=== PATIENT | female | born 1965 | race Caucasian/White ===

== ENCOUNTER → 2017-08-26 | Day surgery (SDC) | payer OTHER ==
[~2017-08-26] MED LIST: ACETAMINOPHEN/HYDROcodone 325 MG/7.5 MG TAB ONE; KETOROLAC TROMETHAMINE 30 MG/ML (IVP) VIAL IV PUSH ONE; LACTATED RINGER'S 1000 ML INJ 1,000 ML ONE; MIDAZOLAM HCL 2 MG/2 ML VIAL ONE; ONDANSETRON HCL 4 MG/2 ML VIAL IV PUSH ONE; PROPOFOL 200 MG/20 ML AMP IV ONE; ceFAZolin 2 GM PREMIX 50 ML ONE
--- NOTE | 2017-08-26 11:06 | MP ---
cc: CATHY SALAZAR M.D. DATE OF SURGERY 08/26/2017 PREOPERATIVE DIAGNOSIS Perimenopausal menorrhagia. PROCEDURE Diagnostic hysteroscopy, fractional dilatation and curettage and endometrial ablation with NovaSure. POSTOPERATIVE DIAGNOSIS Perimenopausal menorrhagia. SURGEON MD Trevor ANESTHESIA General LMA. ESTIMATED BLOOD LOSS Minimal, less than 50 cc. DRAINS None. OPERATIVE FINDINGS The patient had symmetrical endometrial cavity, polypoid-appearing endometrium but no focal abnormality, no perforation. The uterus was measured, approximately 9 cm in length and 2.5 cm in width. The generator on the NovaSure measured 66 dickson with a time of 120 seconds during the ablation. INDICATIONS FOR PROCEDURE Patient with recurrent heavy menstrual bleeding affecting quality of life. The patient's ultrasound preoperatively revealed a thickened endometrium. Recommendation was to proceed with endoscopic evaluation, biopsy, possible MyoSure resection of polyp and endometrial ablation. Consent was signed. The patient received Ancef 2 grams prophylactically. PROCEDURE DESCRIPTION The patient was taken to the operating room and under general anesthesia had an LMA placed. She was carefully positioned in dorsal lithotomy position with candy-cane stirrups. She had sequentials placed on her lower extremities for VTE prophylaxis. She was prepped and draped. Time-out was conducted and agreed by all present in the room. Examination of the pelvis was conducted. Bimanual exam revealed a midline anteverted uterus measuring about 6-8 weeks. Good support was noted. The cervix was identified. Endocervical curettings were obtained after securing the anterior lip with a single-tooth tenaculum. Uterine sound was then placed gently to about 9 cm. The cervix was then dilated to accommodate a rigid hysteroscope using normal saline. Examination of the cavity was described above. This was followed by curettings of the endometrial cavity. Tissue was sent in formalin for both the endocervical and endometrial. The NovaSure device was utilized. Measurements were set as stated above generating a power of 66 dickson. Complete electrodesiccation of the cavity was complete. Examination of the cavity postprocedure revealed good result with no perforation. At the completion of the case final count was correct. The patient was stable. She was taken to the recovery room on room air. MD ALBINO Moran/NAOMI /8:39 AM /10:53 AM
== END | disposition home or self-care (01) ==
LOC: ESDC 06:49
PROVIDERS: ATTEND Obstetrics & Gynecology
DX: N92.4 Excessive bleeding in the premenopausal period (principal)
CPT/HCPCS: 00952; 58563; 88305; J0690; J1885; J2250; J2405; J3010; J7120